=== PATIENT | female | born 1970 | race Caucasian/White ===

== ENCOUNTER → 2017-05-01 | Outpatient (CLI) | payer SELFPAY | LOC: YCFC.O 10:46 | PROVIDERS: ATTEND Nurse Practitioner Family | DX: B34.9 Viral infection, unspecified (principal) ==

== ENCOUNTER → 2017-11-15 | Outpatient (CLI) | payer OTHER ==
--- NOTE | 2017-11-16 09:38 | MAM ---
EXAM DESCRIPTION: 3D Screening BILATERAL : Digital Mammography. CLINICAL HISTORY: 46 years Female SCREENING . No personal history or family history of breast cancer. Remote family history of ovarian cancer. Childbirth. Premenopausal. No HRT. Lifetime risk of developing breast cancer (Tyrer-Cuzick model) is 7.7 %. COMPARISON: 2-D digital screening bilateral study 08/11/2015. TECHNIQUE: Bilateral CC and MLO projection full-field images, Digital tomosynthesis mammographic technique. Bilateral digital 2-D full-field MLO images. CAD not utilized. FINDINGS: The breast parenchymal density pattern is: Scattered areas of fibroglandular density. No skin thickening or nipple retraction. Stable nodular density anterior inferior right breast. No new focal, stellate mass or density, focal asymmetry , and no suspicious microcalcifications bilaterally. Stable mammograms compared to prior study. Taking into account, differences in mammographic technique. IMPRESSION: Benign exam BIRAD CATEGORY: 2 BENIGN FINDINGS RECOMMENDATIONS: FOLLOW UP: Routine digital bilateral screening, one year interval from October 2017. Written communication explaining the IMPRESSION and follow-up, will be mailed to the patient and referring health care provider. According to the [employer], yearly mammograms are recommended starting at age 40 and continuing as long as a woman is in good health. Any breast change noted on a breast self-exam should be reported promptly to the patient's healthcare provider. Breast MRI is recommended for women with an approximately 20-25% or greater lifetime risk of breast cancer, including women with a strong family history of breast or ovarian cancer and women who have been treated for Hodgkin's disease. A negative mammographic report should not delay tissue diagnosis in patients with significant clinical history or physical findings. Extremely dense breast tissue limits the sensitivity of digital mammography. Electronically signed by: Julio C Encarnacion MD 11/16/2017 9:36 AM CDT
== END ==
LOC: MAMMO 07:48
PROVIDERS: ATTEND Obstetrics & Gynecology
DX: Z12.31 Encounter for screening mammogram for malignant neoplasm of breast (principal)

== ENCOUNTER → 2017-12-01 | Outpatient (CLI) | payer OTHER ==
--- NOTE | 2017-12-01 10:21 | RAD ---
EXAM DESCRIPTION: Humerus,Right CLINICAL HISTORY: ARM PAIN COMPARISON: None. IMPRESSION: 2 views of the right humerus show no evidence of acute fracture, focal bone destruction, or joint dislocation. Soft tissues are unremarkable. Electronically signed by: Bertrand Melgar MD 12/01/2017 10:20 AM CDT
--- NOTE | 2017-12-01 14:59 | US ---
EXAM DESCRIPTION: Soft Tissue,Abdomen: ULTRASOUND. CLINICAL HISTORY: LEFT UPPER QUAD Swelling, mass COMPARISON: None. TECHNIQUE: Transabdominal scannin-dimensional and Doppler modes. FINDINGS: Multiple homogeneous hypoechoic masses in the abdominal wall of the left upper quadrant. These are relatively uniform and similar in appearance with no vascularity. Echogenic septum between these lesions. No fluid collection, no abnormal vascularity. No calcification. The entire area measures approximately 6.5 x 6.9 x 4.0 cm. 4 individual masses range in size from 3.7 cm- 2.3 cm greatest diameter. IMPRESSION: Findings suggest 4 clustered lipomas in the abdominal wall of the left upper quadrant of the abdomen. Electronically signed by: Julio C Encarnacion MD 12/01/2017 2:57 PM CDT
== END ==
LOC: US 08:44
PROVIDERS: ATTEND Nurse Practitioner Family
DX: R19.02 Left upper quadrant abdominal swelling, mass and lump (principal); D17.9 Benign lipomatous neoplasm, unspecified; M79.601 Pain in right arm

== ENCOUNTER → 2018-07-12 | Outpatient (CLI) | payer OTHER ==
--- NOTE | 2018-07-13 13:28 | RAD ---
EXAM DESCRIPTION: Femur,Left CLINICAL HISTORY: PN IN LEFT LEG COMPARISON: None. TECHNIQUE: 2 views left FINDINGS: Mild degenerative changes are observed in the knee. The femur is otherwise unremarkable. No evidence for fracture is seen. IMPRESSION: No fracturing is detected. Electronically signed by: Duglas Mata MD 07/13/2018 1:26 PM CDT
== END ==
LOC: LAB.O 16:15
PROVIDERS: ATTEND Nurse Practitioner Family
DX: M79.605 Pain in left leg (principal); M79.642 Pain in left hand; R22.32 Localized swelling, mass and lump, left upper limb

== ENCOUNTER → 2019-01-04 | Outpatient (CLI) | payer OTHER | LOC: YCFC.O 11:44 | PROVIDERS: ATTEND Nurse Practitioner | DX: Z51.81 Encounter for therapeutic drug level monitoring (principal) ==

== ENCOUNTER → 2019-02-07 | Outpatient (CLI) | payer OTHER ==
--- NOTE | 2019-02-08 18:01 | MAM ---
EXAM DESCRIPTION: 3D Screening BILATERAL : Digital Mammography. CLINICAL HISTORY: 48 years Female SCREENING . No complaints. No personal history of breast cancer. Mother with breast cancer age 67. Remote family history of ovarian cancer. Menarche age 13. Childbirth age 21. Postmenopausal unknown duration. No HRT.. Lifetime risk of developing breast cancer (Tyrer-Cuzick model)(%): 17.1. COMPARISON: Bilateral screening digital breast tomosynthesis 15 November 2017.. TECHNIQUE: Bilateral CC and MLO projection full-field images, digital tomosynthesis mammographic technique. Bilateral digital 2-D full-field MLO images. CAD not available for tomosynthesis or 2-D images. FINDINGS: The breast parenchymal density pattern is: Scattered areas of fibroglandular density. No skin thickening or nipple retraction. Nodular-type fibroglandular tissues denser on the right breast in the left. This asymmetry is stable. No new focal, stellate mass or density, focal asymmetry , and no suspicious microcalcifications bilaterally. Stable mammograms compared to prior study. IMPRESSION: Benign exam. BIRAD CATEGORY: 2 BENIGN FINDINGS. RECOMMENDATIONS: FOLLOW UP: Routine digital bilateral mammographic screening, one year interval from January 2019. Written communication explaining the IMPRESSION and follow-up, will be mailed to the patient and referring health care provider. According to the [employer], yearly mammograms are recommended starting at age 40 and continuing as long as a woman is in good health. Any breast change noted on a breast self-exam should be reported promptly to the patient's healthcare provider. Breast MRI is recommended for women with an approximately 20-25% or greater lifetime risk of breast cancer, including women with a strong family history of breast or ovarian cancer and women who have been treated for Hodgkin's disease. A negative mammographic report should not delay tissue diagnosis in patients with significant clinical history or physical findings. Extremely dense breast tissue limits the sensitivity of digital mammography. Electronically signed by: Julio C Encarnacion MD 02/08/2019 5:59 PM [employer]
== END ==
LOC: MAMMO 13:30
PROVIDERS: ATTEND Obstetrics & Gynecology
DX: Z12.31 Encounter for screening mammogram for malignant neoplasm of breast (principal)

== ENCOUNTER → 2019-08-02 | Outpatient (CLI) | payer OTHER ==
--- NOTE | 2019-08-05 07:57 | MRI ---
EXAM DESCRIPTION: Lumbar Spine w/o Contrast CLINICAL HISTORY: 48 years, Female, LUMBAR RIDICULOPATHY COMPARISON: None TECHNIQUE: Multiplanar multi sequence images of the lumbar spine were obtained without gadolinium contrast. FINDINGS: Minimal grade 1 retrolisthesis at L5-S1, vertebral body height and alignment are otherwise well maintained. No bone marrow signal abnormalities. The conus lies posterior to the L1-2 disc, and the cauda equina is unremarkable. The paraspinal and visualized retroperitoneal soft tissues are unremarkable. T12-L1: No disc bulging or facet joint degeneration. L1-2: Mild bilateral facet joint degeneration without disc bulging or stenosis. L2-3: Bilateral facet joint degeneration and ligamentum flavum thickening without disc bulging resulting in only minimal central canal stenosis. L3-4: Bilateral facet joint degeneration and ligamentum flavum thickening without this bulging resulting in only minimal central canal stenosis. L4-5: Disc desiccation with mild concentric disc bulging, bilateral facet joint degeneration and ligamentum flavum thickening resulting in moderate central canal stenosis. Disc material approaches but does not definitely abut the descending L5 nerve roots in the lateral recesses bilaterally. L5-S1: Disc desiccation with concentric disc bulging and superimposed posterior midline/right paramedian midline disc bulging with an associated annular tear at the same location. Bilateral facet joint degeneration with ligamentum flavum thickening, and findings result in only mild central canal stenosis. Disc material approaches and likely abuts the descending right S1 nerve root in the right lateral recess. Tiny synovial cysts versus joint effusions arising from the facet joints posteriorly. IMPRESSION: Degenerative disc and facet joint disease at L4-5 and L5-S1 resulting in central canal stenosis and questionable nerve root abutment as detailed above. Electronically signed by: Pj Chu MD 08/05/2019 7:55 AM CDT
== END ==
LOC: MRI 13:42
PROVIDERS: ATTEND Nurse Practitioner Family
DX: M54.16 Radiculopathy, lumbar region (principal); M51.36 Other intervertebral disc degeneration, lumbar region; M48.061 Spinal stenosis, lumbar region without neurogenic claudication